=== PATIENT | male | born 1985 | race Caucasian/White ===

== ENCOUNTER 2018-09-30 18:35 | Emergency (ER) | payer MEDICAID ==
[~2018-09-30] VITALS: Ht 170.2 cm; Wt 95.7 kg
[2018-09-30 18:43] VITALS: Ht 170.2 cm; Wt 95.7 kg
[2018-09-30 19:39] VITALS: BP 135/84
== END 2018-09-30 19:39 | disposition home or self-care (01) ==
LOC: ED 18:35
DX: H60.501 Unspecified acute noninfective otitis externa, right ear (principal)

== ENCOUNTER 2019-12-14 18:08 | Emergency (ER) | payer MEDICAID ==
[~2019-12-14] VITALS: Ht 170.2 cm; Wt 101.2 kg
[2019-12-14 18:15] VITALS: Ht 170.2 cm; Wt 101.2 kg
[2019-12-14 20:58] VITALS: BP 129/79
== END 2019-12-14 20:58 | disposition home or self-care (01) ==
LOC: ED 18:08
DX: H60.91 Unspecified otitis externa, right ear (principal); R50.9 Fever, unspecified

== ENCOUNTER 2020-05-16 19:56 | Emergency (ER) | payer MEDICAID ==
[~2020-05-16] VITALS: Ht 167.6 cm; Wt 101.6 kg
[2020-05-16 20:25] VITALS: Ht 167.6 cm; Wt 101.6 kg
[2020-05-16 22:36] LABS: BASOPHIL % 0.5 % (0-2); PLATELET COUNT 253 x10^3mcL (130-400); RED CELL DISTRIBUTION WIDTH 13.3 % (11.5-14.5)
[2020-05-16 22:48] LABS: CALCIUM 9.1 mg/dL (8.5-10.1); CHLORIDE SERUM 100 mmol/L (98-107); CREATININE SERUM 1.3 mg/dL (0.7-1.3); GFR1 > 60 mL/min; GLUCOSE SERUM 105 mg/dL (74-106); SODIUM SERUM 137 mmol/L (136-145)
[2020-05-16 22:55] LABS: ALBUMIN 3.7 g/dL (3.4-5.0); ALKALINE PHOSPHATASE 96 U/L (46-116); ALT/SGPT 141 U/L (16-63); AST/SGOT 79 U/L (15-37); BILIRUBIN TOTAL 0.4 mg/dL (0.20-1.00); LIPASE 175 IU/L (73-393); TOTAL PROTEIN, SERUM 7.7 g/dL (6.4-8.2)
[2020-05-16 23:43] VITALS: BP 130/94
== END 2020-05-16 23:43 | disposition home or self-care (01) ==
LOC: ED 19:56
PROVIDERS: Emergency Medicine
DX: K29.20 Alcoholic gastritis without bleeding (principal)